=== PATIENT | female | born 1980 ===

== ENCOUNTER 2018-05-16 14:32 | Emergency (ER) | payer OTHER ==
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
--- NOTE | 2018-05-16 16:41 | US ---
Right groin ultrasound: Multiple real-time images of the right groin were obtained. Common femoral vein and common femoral artery appear unremarkable. No abnormal fluid collections within the right groin are seen. Incidental lymph nodes are seen which have a normal appearance within the right groin. Impression: 1. Normal-appearing right groin ultrasound. Diagnostic code #1
[2018-05-16 17:31] VITALS: BP 104/64
== END 2018-05-16 17:20 | disposition home or self-care (01) ==
LOC: JD.ED 14:32
DX: R59.1 Generalized enlarged lymph nodes (principal); Z79.899 Other long term (current) drug therapy; Z88.1 Allergy status to other antibiotic agents
CPT/HCPCS: 76881-26-RT; 76881-RT; 99283; 99283-25